=== PATIENT | male | born 1985 | race Caucasian/White ===

== ENCOUNTER 2020-09-14 00:23 | Emergency (ER) | payer SELFPAY ==
[2020-09-14] MEDS ORDERED: Lidocaine 1% (PF) 30 ML VIAL ONE (00:48)
[2020-09-14] MEDS ORDERED: Lidocaine 1% w/Epinephrine 1:100K 30 ML VIAL ONE (00:49)
[2020-09-14] MEDS ORDERED: CEFAZOLIN 1 GM VIAL ONE (01:04)
[2020-09-14] MEDS ORDERED: Sterile Water 0 ML ONE (01:08)
[2020-09-14] MEDS ORDERED: Water For Inject, Bacteriostat 30 ML ONE (01:10)
[2020-09-14] MEDS ORDERED: TETANUS, DIPHTHERIA TOX,ADULT (TDVAX) 0.5 ML VIAL IM ONE (01:27)
[2020-09-14] MEDS ORDERED: Boostrix 0.5 ML (Tdap) VIAL ONE (01:31)
== END 2020-09-14 01:44 | disposition home or self-care (01) ==
LOC: NAV ERS 00:23
DX: L02.415 Cutaneous abscess of right lower limb (principal); L03.115 Cellulitis of right lower limb
CPT/HCPCS: 10060; 90471; 90714; 90715; 96372; J0690; J2001